=== PATIENT | female | born 1940 | race Caucasian/White ===

== ENCOUNTER 2018-05-28 17:54 | Emergency (ER) | payer MEDICARE, OTHER ==
[2018-05-28] MEDS ORDERED: ONDANSETRON ODT 8 MG TAB SL ONE (18:16)
[2018-05-28] MEDS ORDERED: HYDROcodone 5MG/APAP 325MG 1 EA TAB PO ONE (18:16)
[2018-05-28] MEDS ORDERED: IBUPROFEN 200 MG TAB PO ONE (18:16)
--- NOTE | 2018-05-28 18:39 | CT ---
CLINICAL HISTORY: [id number], lr4 palsy 2 weeks COMPARISON: None. TECHNIQUE: CT HEAD WITHOUT IV CONTRAST on 05/28/2018 6:16 PM [employer] This exam was performed according to our departmental dose-optimization program, which includes automated exposure control, adjustment of the mA and/or kV according to patient size and/or use of iterative reconstruction technique. FINDINGS: There is no acute hemorrhage, mass effect or midline shift. Goode-white differentiation is preserved. There is no hydrocephalus. There is no significant volume loss for age. There are mild patchy hypodensities within the periventricular and subcortical white matter, consistent with microangiopathic ischemic changes. The calvarium is intact. Orbits and globes are unremarkable. The paranasal sinuses are clear. Mastoid air cells are clear. IMPRESSION: No acute intracranial findings. Electronically signed by: Jeffery Boucher MD 05/28/2018 6:38 PM [employer]
[2018-05-28] MEDS ORDERED: cloNIDine HCL 0.1 MG TAB PO ONE (19:13)
[2018-05-28] MEDS ORDERED: ALPRAZolam 0.25 MG TAB PO ONE (19:14)
[2018-05-28] MEDS ORDERED: ALPRAZolam 0.5 MG TAB ONE (19:38)
[2018-05-28] MEDS ORDERED: cefTRIAXone SODIUM 1 GM in SODIUM CHL 0.9% 50ML MIN-BAG+ 50 ML IVPB ONE (19:56)
[2018-05-28] MEDS ORDERED: HYDROmorphone HCL INJ 2 MG/ML VIAL IV ONE (19:56)
[2018-05-28] MEDS ORDERED: cefTRIAXone SODIUM 1 GM VIAL ONE (20:09)
[2018-05-28] MEDS ORDERED: SODIUM CHL 0.9% 50ML MIN-BAG+ 50 ML IVPB ONE (20:09)
[2018-05-28] MEDS ORDERED: HEPARIN SODIUM (PORCINE) 5,000 U/ML VIAL IV ONE (20:35)
[2018-05-28] MEDS ORDERED: VANCOMYCIN HCL INJ 1,000 MG in SODIUM CHLORIDE 0.9% 250ML 250 ML IVPB ONE (20:35)
--- NOTE | 2018-05-28 20:58 | ED.PDOC ---
History of Present Illness - General Chief Complaint: Headache Stated Complaint: headache,double vision,nausea Time Seen by Provider: 05/28/18 17:55 Source: patient Exam Limitations: no limitations - History of Present Illness Initial Comments: the patient is a 77-year-old female presenting to the emergency room primarily secondary to a left posterior orbital severe headache. The headache has been worsening over the last 2-3 days. She has actually had a little bit of a headache for the last couple of weeks. 2 weeks ago she developed a left fourth cranial nerve palsy. She did see ophthalmology, dr patel and they had decided to follow it clinically. If it worsened then they would seek neurological evaluation. The palsy itself is actually improved significantly to the point where the patient can now see distances quite well but still has difficulty seeing closer objects. She has had some nausea with this headache today. The patient is not a chronic pain medication user but she did require fairly large amount of opiates to control the pain here. Additionally the patient's blood pressure was markedly elevated here where she is normally borderline hypotensive. Systolic blood pressures peaked around 215 here today. They have improved significantly with pain control and one oral dose of clonidine. She is not reporting any fevers or sinus drainage. No altered mental status. on exam I'm actually unable to elicit a distinguishable deficit on the left however the patient obviously is still registering a visual discrepancy up close. Timing/Duration: unsure Severity: severe Improving Factors: nothing Worsening Factors: nothing Associated Symptoms: headaches, malaise, nausea/vomiting Allergies/Adverse Reactions: Allergies NO KNOWN ALLERGY Allergy (Verified 05/28/18 18:15) Home Medications: Ambulatory Orders Aspirin [(None)] 325 mg PO QD 05/28/18 Calcium Carbonate-Vitamin D [Calcium 600+D 600-200 mg-Unit] 1 tab PO DAILY 05/28/18 Celecoxib [Celebrex] 200 mg PO DAILY 05/28/18 Cholecalciferol [Vitamin D3] 2,000 unit PO DAILY 05/28/18 Imynaihyubc-Vlolaxmaxyq-Iqcwcd [Move Free Joint Health Ad] 1 tab PO DAILY 05/28/18 Melatonin [Melatonin Maximum Strengt] 5 mg PO BEDTIME 05/28/18 Multiple Vitamin [Multivitamins] 1 cap PO DAILY 05/28/18 Omeprazole 20 mg PO DAILY 05/28/18 Review of Systems - Review of Systems Constitutional: States: malaise EENTM: States: double vision Respiratory: States: no symptoms reported Cardiology: States: no symptoms reported Gastrointestinal/Abdominal: States: nausea - mild intermittent Musculoskeletal: States: no symptoms reported Skin: States: no symptoms reported Neurological: States: see HPI, headache Endocrine: States: no symptoms reported All other Systems: No Change from Baseline Past Medical History (General) - Patient Medical History Hx Stroke: No Hx Congestive Heart Failure: No Hx Diabetes: No Surgical History: cholecystectomy, tonsillectomy - Vaccination History Hx Influenza Vaccination: Yes Hx Pneumococcal Vaccination: Yes - Social History Hx Tobacco Use: No Family Medical History - Family History Mother Family History: Unknown Living Status: Unknown Physical Exam - Physical Exam General Appearance: Alert, Other - obviously uncomfortable Eye Exam: right normal Ears, Nose, Throat: hearing grossly normal, normal pharynx Neck: full range of motion, supple Respiratory: lungs clear, normal breath sounds, no respiratory distress, no accessory muscle use Cardiovascular/Chest: normal peripheral pulses, regular rate, rhythm, no edema Peripheral Pulses: radial,right: 2+, radial,left: 2+, dorsalis pedis,right: 2+, dorsalis pedis,left: 2+ Gastrointestinal/Abdominal: non tender, soft Rectal Exam: deferred Back Exam: no CVA tenderness, no vertebral tenderness Extremity: non-tender, normal inspection, no pedal edema, normal capillary re fill Neurologic: alert, normal mood/affect, oriented x 3, other - see history of present illness Skin Exam: normal color Comments: Vital Signs - 24 hr 05/28/18 05/28/18 05/28/18 18:10 19:00 19:40 Temperature 98.1 F Pulse Rate [ 75 58 L 58 L Left Brachial] Respiratory 16 16 Rate Blood Pressure 199/116 177/88 177/88 [Left Arm] O2 Sat by Pulse 98 99 Oximetry 05/28/18 20:40 Temperature Pulse Rate [ 53 L Left Brachial] Respiratory 16 Rate Blood Pressure 118/73 [Left Arm] O2 Sat by Pulse 100 Oximetry Progress - Progress Progress: 05/28/18 21:00 the patient is a 77-year-old female presenting with a left fourth cranial nerve palsy for the last 2 weeks and a progressive retro-orbital headache over the last several days. Concern here is for subacute cavernous sinus thrombosis. The patient is being transferred for neurological consultation and possible MR venogram. Blood cultures have been performed. The patient is being dosed with Rocephin and vancomycin. She is also receiving 4000 units of IV heparin currently. Transferred for higher level of care. Acceptance has by Dr. Santo and Dr. Simpson. acceptance is appreciated - Results/Orders Results/Orders: BLOOD CULTURE Stat x2 Laboratory Results - last 24 hr 05/28/18 05/28/18 05/28/18 19:40 19:40 19:40 WBC 6.2 RBC 4.55 Hgb 13.5 Hct 40.3 MCV 88.6 MCH 29.6 MCHC 33.4 RDW 13.1 Plt Count 232 MPV 10.3 Absolute Neuts (auto) 3.90 Absolute Lymphs (auto) 1.70 Absolute Monos (auto) 0.40 Absolute Eos (auto) 0.20 Absolute Basos (auto) 0.10 Neutrophils % 62.6 Lymphocytes % 26.5 Monocytes % 6.5 Eosinophils % 3.3 Basophils % 1.1 PT 10.2 INR 1.02 PTT (SP) 23.4 D-Dimer, Quantitative 0.39 Sodium 139 Potassium 4.5 Chloride 104 Carbon Dioxide 26 Anion Gap 13.5 BUN 17 Creatinine 0.54 L BUN/Creatinine Ratio 31.5 H Random Glucose 113 H Serum Osmolality 279.9 Lactic Acid Calcium 9.4 Total Bilirubin 0.7 AST 25 ALT 18 Alkaline Phosphatase 89 Serum Total Protein 7.4 Albumin 4.0 Globulin 3.4 Albumin/Globulin Ratio 1.2 05/28/18 19:40 WBC RBC Hgb Hct MCV MCH MCHC RDW Plt Count MPV Absolute Neuts (auto) Absolute Lymphs (auto) Absolute Monos (auto) Absolute Eos (auto) Absolute Basos (auto) Neutrophils % Lymphocytes % Monocytes % Eosinophils % Basophils % PT INR PTT (SP) D-Dimer, Quantitative Sodium Potassium Chloride Carbon Dioxide Anion Gap BUN Creatinine BUN/Creatinine Ratio Random Glucose Serum Osmolality Lactic Acid 1.4 Calcium Total Bilirubin AST ALT Alkaline Phosphatase Serum Total Protein Albumin Globulin Albumin/Globulin Ratio rapid flu is negative Head CT shows no acute pathology. Departure - Departure Clinical Impression: Cranial nerve palsy, Headache around the eyes, Uncontrolled hypertension Disposition: Transfer to Hospital Home Medications: Ambulatory Orders Aspirin [(None)] 325 mg PO QD 05/28/18 Calcium Carbonate-Vitamin D [Calcium 600+D 600-200 mg-Unit] 1 tab PO DAILY 05/28/18 Celecoxib [Celebrex] 200 mg PO DAILY 05/28/18 Cholecalciferol [Vitamin D3] 2,000 unit PO DAILY 05/28/18 Cirgwktyfto-Czswuvwgjaz-Tjnbwf [Move Free Joint Health Ad] 1 tab PO DAILY 05/28/18 Melatonin [Melatonin Maximum Strengt] 5 mg PO BEDTIME 05/28/18 Multiple Vitamin [Multivitamins] 1 cap PO DAILY 05/28/18 Omeprazole 20 mg PO DAILY 05/28/18 Transfer to Outside Facility - Transfer Information Accepting Provider:: dr simpson/Hansa Accepting Facility: [facility] Reason for Transfer: required specialist not available
[2018-05-28] MEDS ORDERED: VANCOMYCIN HCL INJ 1,000 MG VIAL IVPB ONE (21:13)
[2018-05-28] MEDS ORDERED: SODIUM CHLORIDE 0.9% 250ML 250 ML ONE (21:14)
[2018-05-28 21:33] VITALS: O2SAT 99
[2018-05-28 21:50] VITALS: BP 142/68; TEMP 98.6
[2018-05-28] MEDS ORDERED: ONDANSETRON INJ 4 MG/2 ML VIAL IV ONE (22:03)
[2018-05-28] MEDS ORDERED: ONDANSETRON INJ 4 MG/2 ML VIAL ONE (22:03)
== END 2018-05-28 22:10 | disposition short-term general hospital (02) ==
LOC: ER 17:54
DX: H49.12 Fourth [trochlear] nerve palsy, left eye (principal); I10 Essential (primary) hypertension; R51 Headache; R11.0 Nausea; Z79.82 Long term (current) use of aspirin; Z79.899 Other long term (current) drug therapy
CPT/HCPCS: 36415; 70450; 80053; 83605; 85025; 85379; 85610; 85730; 87040; 87502; J0696; J1170; J1644; J2405; J3370; J7050

== ENCOUNTER → 2018-05-31 | Outpatient (CLI) | payer MEDICARE, OTHER | LOC: YCFC.O 09:38 | PROVIDERS: ATTEND Family Medicine | DX: R53.83 Other fatigue (principal); E78.5 Hyperlipidemia, unspecified; R51 Headache ==

== ENCOUNTER → 2018-12-05 | Outpatient (CLI) | payer MEDICARE, OTHER ==
--- NOTE | 2018-12-05 17:11 | RAD ---
EXAM: XR Chest, 2 Views CLINICAL HISTORY: 78 years old and is Female; ESSENTIAL HYPERTENSION TECHNIQUE: Frontal and lateral views of the chest. COMPARISON: 10/16/2014 FINDINGS: Limitations: None. Lungs: Progressive chronic bronchial thickening noted. No consolidation. Pleural space: Unremarkable. No pneumothorax. Heart: Unremarkable. No cardiomegaly. Mediastinum: Unremarkable. Bones/joints: Postoperative changes left shoulder present. Degenerative changes noted in the spine and right shoulder. Vasculature: Stable ectatic aorta. IMPRESSION: Progressive chronic interstitial scarring since 2014. No acute changes. Electronically signed by: Claudia Bassett MD 12/05/2018 5:09 PM CDT
== END ==
LOC: YCFC.O 15:58
PROVIDERS: ATTEND Family Medicine
DX: I10 Essential (primary) hypertension (principal); R09.89 Other specified symptoms and signs involving the circulatory and respiratory systems; R61 Generalized hyperhidrosis

== ENCOUNTER → 2018-12-06 | Outpatient (CLI) | payer MEDICARE, OTHER | LOC: RESP 15:32 | PROVIDERS: ATTEND Family Medicine | DX: I48.91 Unspecified atrial fibrillation (principal) ==

== ENCOUNTER → 2018-12-26 | Outpatient (CLI) | payer MEDICARE, OTHER | LOC: ECHO 16:30 | PROVIDERS: ATTEND Internal Medicine Cardiovascular Disease | DX: R94.31 Abnormal electrocardiogram [ECG] [EKG] (principal); I48.2 Chronic atrial fibrillation ==

== ENCOUNTER → 2018-12-29 | Outpatient (CLI) | payer MEDICARE, OTHER | LOC: NM 08:00 | PROVIDERS: ATTEND Internal Medicine Cardiovascular Disease | DX: R94.31 Abnormal electrocardiogram [ECG] [EKG] (principal); I48.2 Chronic atrial fibrillation ==

== ENCOUNTER → 2020-03-17 | Outpatient (CLI) | payer MEDICARE, OTHER | LOC: YCFC.O 09:36 | PROVIDERS: ATTEND Family Medicine | DX: Z20.828 Contact with and (suspected) exposure to other viral communicable diseases (principal) ==

== ENCOUNTER → 2020-04-01 | Outpatient (CLI) | payer MEDICARE, OTHER ==
--- NOTE | 2020-04-01 16:18 | RAD ---
EXAM DESCRIPTION: Chest,2 Views CLINICAL HISTORY: Respiratory crackles COMPARISON: Chest radiograph dated July 30, 2019 TECHNIQUE: Two-view radiograph of the chest FINDINGS: Cardiac silhouette shows normal heart size. Pulmonary vascularity is within normal limits. Redemonstrated emphysematous changes with chronic interstitial scarring. New hazy opacity lateral aspect of the right mid lung concerning for infectious/inflammatory processes such as pneumonia. Mildly blunted right costophrenic angle compatible with trace right-sided pleural effusion. Left lung shows no confluent infiltrates. There is no pneumothorax. Postsurgical changes over the left humeral head. Degenerative changes of the thoracic spine. IMPRESSION: 1. New hazy opacity lateral aspect of the right mid lung concerning for infectious/inflammatory processes such as pneumonia. 2. Emphysema and chronic interstitial scarring. 3. Other findings as above. Electronically signed by: Tacos Piedra MD 04/01/2020 4:17 PM [facility]
== END ==
LOC: RAD 10:29
PROVIDERS: ATTEND Family Medicine
DX: R09.89 Other specified symptoms and signs involving the circulatory and respiratory systems (principal); J43.9 Emphysema, unspecified; R91.8 Other nonspecific abnormal finding of lung field; J84.10 Pulmonary fibrosis, unspecified

== ENCOUNTER → 2020-04-07 | Outpatient (CLI) | payer MEDICARE, OTHER ==
--- NOTE | 2020-04-07 16:28 | RAD ---
EXAM DESCRIPTION: Cervical Spine, 2-3 Views CLINICAL HISTORY: 79 years Female, NECK PAIN COMPARISON: 04/01/2020 Findings: Two view(s)/radiograph(s) Osteopenia. Increasing confluent right midlung airspace disease. C1-C7 demonstrated on the lateral radiograph. No acute fracture is identified. 3 mm anterolisthesis C7 on T1. Marked multilevel disc space narrowing with marginal osteophytes and facet/uncinate process hypertrophy. IMPRESSION: Multilevel cervical spondylosis. No acute fracture. Increasing confluent right midlung airspace disease which may be infectious/inflammatory. Electronically signed by: Sudhakar Limon MD 04/07/2020 4:27 PM [facility]
== END ==
LOC: LAB.O 09:44
PROVIDERS: ATTEND Family Medicine
DX: M47.892 Other spondylosis, cervical region (principal); R51.9 Headache, unspecified; R91.8 Other nonspecific abnormal finding of lung field